=== PATIENT | female | born 1960 | race Caucasian/White ===

== ENCOUNTER → 2017-09-13 | Day surgery (SDC) | payer BC ==
[~2017-09-13] MED LIST: ALLOPURINOL100 MG PO; CELLCEPT500 MG PO; DEXAMETHASONE SOD PHOS INJ 4 MG/ML VIAL ONE; FENTANYL CITRATE/PF 100MCG/2 ML INJ ONE; GLYCOPYRROLATE INJ 1MG/ 5 ML SYR ONE; LIDOCAINE HCL 2% LOCAL INJ 5 ML SDV VIAL INJ ONE; LOSARTAN PO; LYRICA75 MG PO; METFORMIN HCL500 M2 PO; MIDAZOLAM HCL 2 MG/2 ML VIAL ONE; NEOSTIGMINE 5 MG/5ML SYR ONE; ONDANSETRON HCL INJ 2 MG/ML VIAL ONE; OXYMETAZOLINE HCL 0.05% NAS 1 SPRAY BTL ONE; PANTOPRAZOLE SO40 MG PO; PRO AIR INH; PROPOFOL IV EMULSION 10 MG/ML 20 ML VIAL ONE; ROCURONIUM BROMIDE 10 MG/ML 5ML VIAL ONE; SEVOFLURANE INHAL SOLN 250 ML PEN BTL ONE; SPIRIVA18 MCG INH; SYMBICORT 16010.2 GM INH; THEOPHYLLINE A300 MG PO; WELLBUTRIN SR150 MG PO; ZANTAC150 MG PO
[2017-09-13 07:32] LABS: ANION GAP 14.8 mmol/L (8-16); BLOOD UREA NITROGEN 11 mg/dL (7-26); BUN/CREATININE RATIO 14 (6-25); CALCIUM 9.1 mg/dL (8.4-10.2); CARBON DIOXIDE 21 mmol/L (22-29); CHLORIDE 109 mmol/L (98-107); EST GLOMERULAR FILTRATION RATE > 60 ML/MIN (60-); GLUCOSE 127 mg/dL (74-118); POTASSIUM 3.8 mmol/L (3.5-5.1); SODIUM 141 mmol/L (136-145)
--- NOTE | 2017-09-13 09:55 | Operative Report ---
DATE OF PROCEDURE: September 13, 2017 PREOPERATIVE DIAGNOSES 1. Hoarseness. 2. Abnormal true vocal cord mucosal changes. POSTOPERATIVE DIAGNOSES 1. Hoarseness. 2. Abnormal right true vocal cord mucosal changes. PROCEDURES 1. Direct laryngoscopy. 2. Suspension microlaryngoscopy with operating microscope. 3. Biopsy of right anterior true vocal cord mucosa. SIGNIFICANT FINDINGS: Whitish superficial mucosal changes involving the anterior portion of the right true vocal cord. ANESTHESIA: General endotracheal tube anesthesia. SPECIMENS REMOVED: Biopsy of the superficial mucosa of the anterior right true vocal cord mucosa. ESTIMATED BLOOD LOSS: Less than 1 mL. COMPLICATIONS: None. INDICATIONS: The patient is a 56-year-old white female with a 4-month history of hoarseness, cough, postnasal drip, global sensation, and intermittent sore throat. She has been an [id number] per day smoker since age 12. Flexible fiberoptic nasal laryngoscopy performed in the office revealed bilateral diffuse whitish mucosal changes involving the true vocal cord mucosa. Her symptoms have not been improved with treatment for laryngopharyngeal reflux disease. She is scheduled for direct laryngoscopy, suspension microlaryngoscopy with operating microscope with biopsies of abnormal vocal cord mucosa for the treatment of abnormal vocal cord mucosal changes and hoarseness possibly representing leukoplakia in a heavy smoker. Risks and complications of the procedures were thoroughly discussed with the patient, and they include infection, bleeding, scarring, failure to improve, need for additional operations, possibility of malignancy, and need for further treatment and surgery, permanent worse hoarseness, damage to teeth, gum, tongue, and lips, damage to the esophagus (food tube), damage to the larynx, vocal cord paralysis, need for blood transfusions, damage to surrounding nerves, blood vessels, and muscles, chronic pain. She fully understands and gives consent. PROCEDURE: The patient was taken to the operating room and placed supine on the operating table where general anesthesia was achieved through a 6.5 endotracheal tube. The table was turned 90 degrees with the head towards the surgeon. Shoulder roll was placed. Head and body were draped. A Yomaira laryngoscope was then inserted over a tooth guard. The larynx was visualized without difficulty and placed into suspension on a Michel stand. Thorough inspection revealed the larynx to be essentially normal. The left vocal cord appeared to be normal. The right true vocal cord had abnormal whitish changes in the anterior portion of the true vocal cord mucosa. It appeared to be superficial. The subglottis and trachea appeared to be normal with inspection with a rigid cystoscope. Following this, biopsy was performed of the abnormal whitish mucosal changes in the anterior portion of the right true vocal cord with cup forceps. This was sent for permanent section analysis. Hemostasis was obtained with the Cottonoid pledgets soaked with Afrin. Following this, inspection of the hypopharynx and the larynx revealed no other abnormalities. The patient was awakened in the operating room, extubated and taken to the recovery room in good condition. Job#: [id number]
== END | disposition home or self-care (01) ==
LOC: OR 06:56
PROVIDERS: ATTEND Otolaryngology
DX: J38.3 Other diseases of vocal cords (principal); R49.0 Dysphonia; R23.4 Changes in skin texture; R05 Cough; R09.82 Postnasal drip; K21.9 Gastro-esophageal reflux disease without esophagitis; E11.9 Type 2 diabetes mellitus without complications; G47.33 Obstructive sleep apnea (adult) (pediatric); I10 Essential (primary) hypertension; J44.9 Chronic obstructive pulmonary disease, unspecified; M19.90 Unspecified osteoarthritis, unspecified site; M10.9 Gout, unspecified; H91.90 Unspecified hearing loss, unspecified ear; F32.9 Major depressive disorder, single episode, unspecified; F17.210 Nicotine dependence, cigarettes, uncomplicated; Z01.810 Encounter for preprocedural cardiovascular examination; Z87.01 Personal history of pneumonia (recurrent)
CPT/HCPCS: 31536; 36415; 80048; 82948; 88305; 93005; J1100; J2001; J2250; J2405